=== PATIENT | female | born 1985 ===

== ENCOUNTER 2019-08-31 23:28 | Observation (INO) | payer OTHER ==
[~2019-08-31] VITALS: Ht 165.1 cm; Wt 113.6 kg
[2019-09-01] MEDS ORDERED: D5%-LACTATED RINGERS 1,000 ML IV SCH (02:00)
[2019-09-01] MEDS ORDERED: INSU100I34 SQ-INSULIN (02:18)
[2019-09-01] MEDS ORDERED: INSU100V SQ-INSULIN ×3 (02:18)
[2019-09-01] MEDS ORDERED: METF-688 PO (02:18)
[2019-09-01] MEDS ORDERED: ACETAMINOPHEN 325 MG TABLET ONE (05:20)
[2019-09-01] MEDS ORDERED: ACETAMINOPHEN 325 MG TABLET PO PRN (05:30)
[2019-09-01 08:10] LABS: BASOPHILS % (AUTO) 0 % (0-1); EOSINOPHILS # (AUTO) 0.25 x10^3/uL (0-0.4); EOSINOPHILS % (AUTO) 3 % (1-7); LYMPHOCYTES % (AUTO) 17 % (22-44); MD NO; MEAN CORPUSCULAR HEMOGLOBIN 28.6 pg (27.0-34.8); MEAN CORPUSCULAR HGB CONC 32.4 g/dL (32.4-35.8); MEAN CORPUSCULAR VOLUME 88.4 fL (80-100); MEAN PLATELET VOLUME 8.7 fL (7.4-10.4); MONOCYTES # (AUTO) 0.35 x10^3/uL (0.2-0.8); MONOCYTES % (AUTO) 4 % (2-9); NEUTROPHILS # (AUTO) 5.88 x10^3/uL (1.8-6.8); NEUTROPHILS % (AUTO) 76 % (42-75); PLATELET COUNT 245 x10^3/uL (130-400); RED BLOOD COUNT 3.74 x10^6/uL (3.82-5.3); RED CELL DISTRIBUTION WIDTH 14.6 % (9.6-15.2)
[2019-09-01 08:20] LABS: ALANINE AMINOTRANSFERASE 13 U/L (12-78); ALBUMIN 2.5 g/dL (3.4-5.0); ANION GAP 8 mmol/L (5-15); CHLORIDE 111 mmol/L (98-107); CREATININE 0.54 mg/dL (0.55-1.02)
[2019-09-01 08:23] LABS: ALKALINE PHOSPHATASE 68 U/L (45-117); BILIRUBIN,TOTAL 0.2 mg/dL (0.2-1.0); TOTAL PROTEIN 6.5 g/dL (6.4-8.2)
[2019-09-01 08:50] LABS: MICROSCOPIC INDICATED
[2019-09-01] MEDS ORDERED: ASPIRIN 81 MG TABLET CHEW PO SCH (09:00)
[2019-09-01] MEDS ORDERED: OMEPRAZOLE 20 MG CAPSULE.DR PO SCH (09:00)
[2019-09-01] MEDS ORDERED: ASPIRIN 81 MG TABLET CHEW ONE (09:05)
[2019-09-01 09:12] LABS: CULTURE INDICATED? YES
[2019-09-01] MEDS ORDERED: DIPHENHYDRAMINE 25 MG CAPSULE ONE (15:39)
[2019-09-01] MEDS ORDERED: DIPHENHYDRAMINE 25 MG CAPSULE PO PRN (16:00)
[2019-09-01] MEDS ORDERED: SODIUM CHLORIDE NASAL SPRAY 45ML BOTTLE NAS PRN (18:00)
[2019-09-01] MEDS ORDERED: SODIUM CHLORIDE FLUSH 3ML SYRINGE IVF SCH (21:00)
[2019-09-01] MEDS ORDERED: PRENATAL VIT/IRON/FA 1 EACH TABLET PO SCH (21:00)
[2019-09-01] MEDS ORDERED: PRENATAL VIT/IRON/FA 1 EACH TABLET ONE (22:00)
== END 2019-09-02 09:30 | disposition home or self-care (01) ==
LOC: LDIP 23:28
PROVIDERS: ADMIT Obstetrics & Gynecology Maternal & Fetal Medicine; ATTEND Obstetrics & Gynecology Maternal & Fetal Medicine
DX: O99.810 Abnormal glucose complicating pregnancy (principal); O9A.212 Injury, poisoning and certain other consequences of external causes complicating pregnancy, second trimester; O99.212 Obesity complicating pregnancy, second trimester; T38.3X6A Underdosing of insulin and oral hypoglycemic [antidiabetic] drugs, initial encounter; O34.219 Maternal care for unspecified type scar from previous cesarean delivery; Z3A.24 24 weeks gestation of pregnancy; Z83.3 Family history of diabetes mellitus; Z79.4 Long term (current) use of insulin; Z79.899 Other long term (current) drug therapy
CPT/HCPCS: 80053; 81001; 82962; 83036; 83525; 84681; 85025; 86337; 87086; 96365; 96366; 99201; G0378; J7121; Q0163; 96360; 96361; G0463